=== PATIENT | female | born 2000 | race Two or more races ===

== ENCOUNTER 2025-06-18 00:22 | Inpatient (IN) | payer MEDICAID, OTHER ==
[2025-06-18] VITALS (7 sets, daily range): BP systolic 124–137; BP diastolic 69–83; PULSE 83–104; RESP 17–20; TEMP 98.1–98.6; O2SAT 98–99
[~2025-06-18] VITALS: Ht 154.9 cm; Wt 68.0 kg
[2025-06-18] MEDS ORDERED: BUTORPHANOL TARTRATE 2 MG/1 ML VIAL IV PRN ×2 (00:45)
[2025-06-18] MEDS ORDERED: LIDOCAINE 2%HCL (LOCAL ANESTH.) INJ 20ML MDV IJ PRN (00:45)
[2025-06-18] MEDS ORDERED: METHYLERGONOVINE MALEATE 0.2 MG/ML AMP IM ONE (01:15)
[2025-06-18 01:34] LABS: Hematocrit 28.2 % (36.0-46.0); Hemoglobin 9.2 g/dL (12.2-16.2); Mean Corpuscular Hemoglobin 25.4 pg (28.0-32.0); Mean Corpuscular Volume 77.6 fL (80.0-100.0); Nucleated Red Blood Cells % 0.2 %
[2025-06-18 01:35] LABS: Alanine Aminotransferase 14 U/L (7-40); Albumin 3.7 g/dL (3.2-4.8); Anion Gap 10 (5-15); BUN/Creatinine Ratio 17.1 (10.0-20.0); Carbon Dioxide 21 mmol/L (20-31); Chloride 103 mmol/L (98-107); Glucose 88 mg/dL (74-106); Potassium 3.5 mmol/L (3.5-5.1); Total Protein 6.4 g/dL (5.7-8.2)
[2025-06-18 01:36] LABS: Bilirubin, Total 0.3 mg/dL (0.2-1.0)
[2025-06-18 01:39] LABS: Alkaline Phosphatase 148 U/L (46-116); Blood Urea Nitrogen 7 mg/dL (9-23); Calcium 8.2 mg/dL (8.7-10.4); Sodium 134 mmol/L (136-145)
[2025-06-18 01:53] LABS: INR 0.95 (0.9-1.15); Partial Thromboplastin Time 28.6 SEC (24.5-34.5); Prothrombin Time 10.1 sec (9.3-11.8)
--- NOTE | 2025-06-18 02:57 | DVH ---
EXAM: US OB ULTRASOUND COMP GTR 14 WKS HISTORY: NO CARE TECHNIQUE: Multiple real-time grayscale images of the gravid uterus with duplex Doppler color flow an d M-mode spectral analysis. COMPARISON: None FINDINGS: IUP single live fetus at 34 weeks 6 days average ultrasound age (AUA) based on composite averages of the BPD, head circumference, abdominal circumference and femur length Age based on (early ultrasound) : 34 weeks 6 days MEASUREMENTS: BPD: 8.2 cm GA: 32 w 6 d HC: 31.0 cm GA: 34 w 5 d AC: 34.2 cm GA: 38 w 1 d FL: 6.6 cm GA: 3 3w 6 d Estimated weight 2850+/-428 grams; 6 lbs 5 oz +/-15 oz, 30th percentile. heart rate 139 beats per minute REYNALDO 11.1 cm ANATOMIC SURVEY: Complete anatomic survey was not performed at this time. Cephalic Presentation with low lying head Anterior grade II placenta without previa or abruption Cervix not visualized IMPRESSION: 1. IUP single live fetus at 34 weeks 6 days AUA corresponding to an MEGHA of 07/24/2025. 2. Cephalic presentation with low lying head. 3. Anterior grade II placenta without previa or abruption. 4. REYNALDO 11.1 cm.
[2025-06-18] MEDS: WITCH HAZEL-GLYCERIN PAD TOP PRN (03:05)
[2025-06-18] MEDS: PHISODERM TOP SOLN 240ML BTL TOP PRN (03:05)
[2025-06-18] MEDS: DERMOPLAST 60ML BOTTLE TOP PRN (03:05)
[2025-06-18] MEDS: LACT. RINGERS/OXYTOCIN 20UNITS 500 ML IV ONE ×2 (03:06→03:07)
[2025-06-18] MEDS: PENICILLIN G POT 5MIL/D5 50ML 50 ML IV ONE (03:07)
[2025-06-18] MEDS: LACTATED RINGER'S 1,000 ML IV SCH (03:08)
[2025-06-18] MEDS ORDERED: ONDANSETRON ODT 4 MG TAB PO PRN (03:30)
[2025-06-18 03:32] LABS: Urine Protein, UAD 1+ (Negative)
[2025-06-18] MEDS ORDERED: PENICILLIN G POTASSIUM 2,500,000 UNITS in D5W 5% 50 ML IV SCH (04:45)
[2025-06-18] MEDS: IBUPROFEN 800 MG TAB PO SCH (04:52)
--- NOTE | 2025-06-18 05:22 | DVHHP2 ---
OB CC & HPI Date Date of Admission: Jun 18, 2025 Patient Identification: : 5 Para: 4 EDC: Jul 09, 2025 EGA: 37+ Chief Complaints: Reason for admission: active labor Admission Nurse Assessment Rev: Yes History of Present Complaints Active labor Past Medical History Cardiac: No pertinent Hx Pulmonary: No pertinent Hx Central Nervous System: No pertinent Hx GI: No pertinent Hx Hemotology/Oncology: No pertinent Hx Hepatobiliary: No pertinent Hx Psychiatric: No pertinent Hx Musculoskeletal: No pertinent Hx Rheumotologic: No pertinent Hx Infectious Disease: No peritnent Hx ENT: No pertinent Hx Renal/: No pertinent Hx Endocrine: No pertinent Hx Dermatology: No pertinent Hx Past Surgical History: No pertinent Hx OB History OB History Care: Limited Care (In [place]) Ultrasounds: No ultrasounds Obstetrical Complications: Other (Syphilis titer positive) Medical Complications: None Allergies: Coded Allergies: NO KNOWN ALLERGIES (Unverified , 06/18/25) Current Medications Current Medications Medications (Trade) Dose Ordered Sig/Norah Route PRN Reason Start Time Stop Time Status Last Admin Lactated Ringer's 1,000 ml @ 125 mls/hr Q8H IV 06/18/25 00:45 06/18/25 03:08 Penicillin G Potassium 1926300 units/Dextrose 50 ml @ 100 mls/hr Q4H IV 06/18/25 04:45 Tim Borrego (Tucks) 1 pad PRN PRN TOP PERINEAL AREA DISCOMFORT 06/18/25 00:45 06/18/25 03:05 Sodium Lauryl Sulfate (Phisoderm) 240 ml PRN PRN TOP PERINEAL AREA DISCOMFORT 06/18/25 00:45 06/18/25 03:05 Benzocaine (Dermoplast) 1 applic PRN PRN TOP PERINEAL AREA DISCOMFORT 06/18/25 00:45 06/18/25 03:05 Butorphanol Tartrate (Stadol Injection) 1 mg Q4HPRN PRN IV MODERATE PAIN (4-6 PAIN SCALE) 06/18/25 00:45 Butorphanol Tartrate (Stadol Injection) 2 mg Q4HPRN PRN IV SEVERE PAIN (7-10 PAIN SCALE) 06/18/25 00:45 Lidocaine HCl (Xylocaine) 40 ml ONCE PRN IJ PERINEAL AREA DISCOMFORT 06/18/25 00:45 Acetaminophen (Tylenol Tablet) 650 mg Q4HP PRN PO MILD PAIN (1-3 PAIN SCALE) 06/18/25 03:30 Ondansetron HCl (Zofran Po) 4 mg Q4HPRN PRN PO NAUSEA / VOMITING 06/18/25 03:30 Docusate Sodium (Colace Capsule) 200 mg HS PO 06/18/25 22:00 Ibuprofen (Motrin Tablet) 800 mg Q6HR PO 06/18/25 06:00 06/18/25 04:52 Family & Social History Family/Social History Blood Type: O+ Rubella: unknown RPR/VDRL: Unknown (TPA positive) GBS Status: Unknown HBsAG: Negative Review of Systems Constitutional: No symptom reported Ears, Nose, & Throat: No symptom reported Eyes: No symptom reported Pulmonary/Respiratory: No symptom reported Cardiovascular: No symptom reported Gastrointestinal: No symptom reported Genitourinary: No symptom reported Musculoskeletal: No symptom reported Skin: No symptom reported Psychiatric: No symptom reported Endocrine: No symptom reported Hemotologic/Lymphatic: No symptom reported OB Admission Exam Physical Exam HEENT: TMs Normal, Fontanelles Normal, Nasal Mucosa Normal, Eyes non-injected, Oropharynx Normal, PERRLA, Moist Membranes, EOMI Heart: Rhythm Normal Lungs: Clear Abdomen: Non tender Extremities: Normal Reflexes: Normal Cervical Dilatation: 5cm Effacement: 100% Station: 0 Membranes: Ruptured (clear) Heart Rate: 140's Accelerations: Accelerations Present Decelerations: No Decelerations Snf Variability: Average (6-25) Contractions on Admission: < 5 Minutes Apart Intensity: Firm OB Plan Plan Admitting Diagnosis: SROM , 37+ weeks TPA positive Plan: Expectant Management EMILY GARCÍA DO Jun 18, 2025 05:22
--- NOTE | 2025-06-18 05:26 | LDN2 ---
Labor and Delivery Note Date 06/18/25 Age 25 5 Para 4 AB 0 EDC jun 2025 EGA 37wks Diagnosis labor srom Vaginal Delivery: VTX Vacuum Assisted: No Placenta: Spontaneous Sex: Female Weight 6lb 7oz Apgars 7/9 Nuchal Cord Transected: No Amniotic Fluid: Clear Anesthesia none Episiotomy: No Extension: No EBL 200cc Labs Laboratory Tests 06/18/25 00:55: Hepatitis B Surface Antigen Negative, HIV (1&2) Antibody Negative, Rubella Antibody Positive Blood Bank 06/18/25 00:55: Blood Type O POSITIVE Complications TPA + RPR pending Conditions stable Ventilation Worker none present Visit Coding OBGYN Date of Service: Jun 18, 2025 Billing Provider: EMILY GARCÍA DO COSTUMER Common Visit Codes: 37653-PUI/OBS SAME DATE (LOW), 13303-ZCP/OBS SAME DATE (HIGH) COSTUMER Procedure Codes: 14273-VJH DEL INCLUDING EMILY GARCÍA DO Jun 18, 2025 05:26
[2025-06-18 06:18] LABS: Amphetamine Screen, Urine Pos (NEGATIVE); Barbiturate Scree,Urine Neg (NEGATIVE); Benzodiazephine Screen, Urine Neg (NEGATIVE); Cannabinoid Screen, Urine Pos (NEGATIVE); Cocaine Screen, Urine Neg (NEGATIVE); Opiate Scree,Urine Neg (NEGATIVE); Phencyclidine Screen, Urine Neg (NEGATIVE)
[2025-06-18 12:38] LABS: RAPID PLASMA REAGIN QUANT 1:8 Titer (NONREACTIVE)
[2025-06-18] MEDS ORDERED: PENICILLIN G BENZ 1,200,000 UNITS/2 ML SYRG IM SCH (18:30)
[2025-06-18] MEDS ORDERED: DOCU-265 PO (20:13)
[2025-06-18] MEDS ORDERED: IBUP-1455 PO (20:13)
[2025-06-18] MEDS ORDERED: DOX100T PO (20:13)
[2025-06-18] MEDS ORDERED: FER325T PO (20:13)
[2025-06-18] MEDS: DOXYCYCLINE 100 MG TAB/CAP PO SCH (20:21)
[2025-06-18] MEDS: ACETAMINOPHEN 325 MG TAB PO PRN (20:27)
[2025-06-18] MEDS: DOCUSATE SOD 100 MG CAP PO SCH (22:36)
[2025-06-19 02:33] VITALS: BP 115/65; PULSE 75; RESP 14; TEMP 98.8; O2SAT 98
--- NOTE | 2025-06-19 06:37 | DVHDS2 ---
Obstetrics Discharge Summary Obstetrics Discharge Summary Date of Admission: Jun 18, 2025 Date of Discharge: Jun 19, 2025 Reason For Admission: Onset of Labor Procedures: NST, Ultrasound Intrapartum Procedures: Spontaneous vaginal deliv Procedures: Antibiotics (+Syphilis) Operative Complicat: None Discharge Diagnosis: Delivery Discharge Information: Activity (as tolerated, no heavy lifting and nothing in the vagina for 6 weeks), Diet (Routine), Medications (Rx Sent), Instructions (Routine), Discharge to (Home), Accompanied by (Partner), Discarge date (06/19/25) Visit Coding OBGYN Date of Service: Jun 19, 2025 Billing Provider: STEWART LIMA CNM [employer]GER Common Visit Codes: 72547-SNQ/OBS DISCH DAY <30MIN STEWART LIMA CNM Jun 19, 2025 06:37
--- NOTE | 2025-06-19 06:37 | DVHPN2 ---
Progress Note Date Seen: Jun 19, 2025 Subjective S: bleeding is less, eating food without issues, denies lightheaded/dizziness, pain well controlled with oral medications, no concerns with urinating, passing flatus, no BM yet, ambulating well, baby in NICU at [facility] vital signs Vital Sign Date Time Temp Pulse Resp B/P (MAP) Pulse Ox O2 Delivery O2 Flow Rate FiO2 06/19/25 02:33 98.8 75 14 115/65 (82) 98 98.8 06/18/25 19:00 Room Air Total Intake and Output 06/18/25 06/18/25 06/19/25 15:00 23:00 07:00 Output Total 900 ml Balance -900 ml medications Current Medications Medications Dose Ordered Sig/Norah Route Start Time Stop Time Status Last Admin Dose Admin Tim Borrego 1 pad PRN PRN TOP 06/18/25 00:45 06/18/25 03:05 1 PAD Sodium Lauryl Sulfate 240 ml PRN PRN TOP 06/18/25 00:45 06/18/25 03:05 240 ML Benzocaine 1 applic PRN PRN TOP 06/18/25 00:45 06/18/25 03:05 1 APPLIC Acetaminophen 650 mg Q4HP PRN PO 06/18/25 03:30 06/18/25 20:27 650 MG Ondansetron HCl 4 mg Q4HPRN PRN PO 06/18/25 03:30 Docusate Sodium 200 mg HS PO 06/18/25 22:00 06/18/25 22:36 200 MG Ibuprofen 800 mg Q6HR PO 06/18/25 06:00 06/18/25 11:32 800 MG Doxycycline Monohydrate 100 mg Q12HR PO 06/18/25 20:00 06/18/25 20:21 100 MG laboratory and microbiology Laboratory Tests 06/18/25 00:55 Test 06/18/25 00:55 Range/Units Serum Glucose 88 74-106 mg/dL Objective O: VSS Chest: heart sounds normal and lung sounds clear bilaterally Abd: soft, non-tender, fundus at U/firm/midline, active bowel sounds, no rebound or guarding Perineum: intact, no erythema/edema noted Ext: Non-tender, No edema, 2+ BLE DTRs Lochia: minimal See lab results Assessment/Plan A: 25yo now PPD#1 s/p +Meth, +THC Rh+ Rubella Immune baby in NICU at [facility] P: D/C home today pending social service consult completion Rx sent to pharmacy precautions and preeclampsia warning signs reviewed F/U with [facility] OB office in 2 weeks Plan discussed with: Patient Visit Coding OBGYN Date of Service: Jun 19, 2025 Billing Provider: STEWART LIMA CNM [employer] VIBRATOR Common Visit Codes: [id number] INP/OBS CARE(HIGH) STEWART LIMA CNM Jun 19, 2025 06:37
[2025-06-19 07:15] VITALS: BP 124/68; PULSE 90; RESP 16; TEMP 97.9; O2SAT 97
[2025-06-20 05:08] LABS: Chlamydia Trachomatis, NAA Negative (Negative); Neisseria gonorrhoeae, NAA Negative (Negative)
== END 2025-06-19 12:23 | disposition home or self-care (01) | DRG 806 ==
LOC: LDRP 00:22 → OBSVTOIN 00:25
PROVIDERS: ADMIT Obstetrics & Gynecology; ATTEND Obstetrics & Gynecology
PROC: 10E0XZZ Delivery of Products of Conception, External Approach (ICD-10-PCS; principal; 2025-06-18)
DX: O60.14X0 Preterm labor third trimester with preterm delivery third trimester, not applicable or unspecified (principal); O98.13 Syphilis complicating the puerperium; Z37.0 Single live birth; Z3A.37 37 weeks gestation of pregnancy
CPT/HCPCS: 36415; 59025; 59409; 76805; 80053; 80307; 81001; 81002; 83036; 85025; 85610; 85730; 86592; 86593; 86703; 86762; 86780; 86803; 86850; 86900; 86901; 87340; 94760; 94762; 96360; 96361; 96365; G0378; J2540; J2590; J7060